=== PATIENT | male | born 1945 | race Caucasian/White ===

== ENCOUNTER → 2016-07-30 | Outpatient (CLI) | payer OTHER ==
[~2016-07-30] MED LIST: ACYCLOVIR 400400 MG PO; ADULT LOW DOSE81 MG PO; APAP500; ASPIRIN325; CIPRO250 M1; CIPROFLOXACIN500 M1; CODEINE SULFATE30 MG PO; DEPO-TESTO200 MG/1 M IM; DOXYCYCLINE 10100 MG PO; EFFIENT10 MG; FLOMAX; GLUCOSAMINE HC500 MG PO; HYDROCODON-ACE1 EAC7; LIPITOR40 MG PO; LIPITOR80 MG; LUMIGAN2.5 M1; MULTIVITAMINS PO; MULTIVITAMINS1 EAC7 PO; NITROGLYCERIN0.4 MG; NORVIR100 MG PO; PREZISTA800 MG PO; QUINU5 PD; RAPAFLO8 MG PO; RESTORIL15 MG; TAMSULOSIN HCL0.4 MG PO; TIMOLOL GL0.5 %/5 M1; TIMOLOL MA0.5 %/5 M2 OPHTHALMIC; TOPROL XL25 MG; TRUVADA1 EAC1 PO; ZPAK
== END ==
LOC: RAD 15:03
DX: M54.5 Low back pain (principal); B20 Human immunodeficiency virus [HIV] disease

== ENCOUNTER → 2017-08-03 | Outpatient (CLI) | payer OTHER | LOC: RAD 13:15 | DX: D70.9 Neutropenia, unspecified (principal); R91.8 Other nonspecific abnormal finding of lung field ==

== ENCOUNTER 2017-10-10 03:10 | Inpatient (IN) | payer OTHER ==
[~2017-10-10] VITALS: Ht 175.3 cm; Wt 86.2 kg
[2017-10-10] VITALS (7 sets, daily range): BP systolic 119–142; BP diastolic 65–79
--- NOTE | ~2017-10-10 | D ---
[facility] [place] [address] DISCHARGE SUMMARY Name: BEAU MARTIN Room #: 355-P [facility] IN M.R.#: [id number] Admission: 10/10/17 Attend Phys: Santos Wellington MD Discharge: 10/11/17 Date of : 41 Report #: [id number] THIS REPORT FOR: //name// CC: Juan Wellington DATE OF SERVICE: 10/11/2017 FINAL DIAGNOSES: 1. Left arm pain. 2. Coronary artery disease. PROCEDURES: Stress echocardiogram. HOSPITAL COURSE: The patient is a 72-year-old gentleman who is admitted to the Emergency Room after a sudden onset of left-sided arm pain that radiated down to his hand with some numbness or tingling in the fingers. He was admitted for cardiac evaluation. Enzymes were negative along with no acute EKG changes. With symptomatic treatment, his pain seemed to subside. On the day of discharge, he underwent a stress echocardiogram, which was negative for inducible ischemia. Dr. Sierra felt he was stable for discharge. I discussed with him the possibility that he may have some cervical arthritic or degenerative condition and we will work that up as an outpatient through the office. DISPOSITION: He is discharged to home. DIET AND ACTIVITY: As tolerated. DISCHARGE MEDICATIONS: Resume all his home medications. Follow up with Dr. Wellington in a couple of days to evaluate his arm pain. By: [id number] MD chdii Del Valle
--- NOTE | ~2017-10-10 | EKG ---
[place] [address] [facility] [employer] [place] [address] ELECTROCARDIOGRAM REPORT Name: BEAU MARTIN Room #: 355-P ADM IN M.R.#: [id number] Admission: 10/10/17 Attend Phys: Santos Wellington MD Discharge: Date of : 41 Report #: [id number] THIS REPORT FOR: //name// 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 : 1945 Requested By: Gissell Park Order Number: [id number] MD: Ashish Pinto Measurements Intervals [place] Rate: 49 P: 48 AL: 154 QRS: 16 QRSD: 112 T: -3 QT: 414 QTc: 374 Interpretive Statements Sinus bradycardia Inferior infarct, old Compared to ECG 04/20/2010 08:20:05 Atrial premature complex(es) now present Electronically Signed On 10-11-2017 8:40:37 CDT by Ashish Pinto [email or web address] <ELECTRONICALLY SIGNED> By: Ashish Pinto MD, [facility] 10/11/17 0840 2 2 Ashish Pinto MD, [facility] /EPI
--- NOTE | ~2017-10-10 | EKG ---
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 10/11/17 0840 [id number] [id number] Ashish Pinto MD, [facility] /EPI
--- NOTE | ~2017-10-10 | H ---
[facility] [place] [address] HISTORY AND PHYSICAL Name: BEAU MARTIN Room #: 355-P [facility] IN M.R.#: [id number] Admission: 10/10/17 Attend Phys: Santos Wellington MD Discharge: 10/11/17 Date of : 41 Report #: [id number] THIS REPORT FOR: //name// CC: Juan Sierra Santos Wellington DATE OF SERVICE: 10/10/2017 ATTENDING PHYSICIAN: Santos Mcdowell MD. CHIEF COMPLAINT: Having left arm pain. HISTORY OF PRESENT ILLNESS: The patient is a 72-year-old gentleman with known history of coronary artery disease and HIV, who presented to the ER with complaints of left arm pain that woke him up around 1 o'clock this morning. The patient reports that he was feeling numbness in the three fingers of his left hand. The pain was progressive and continuous. The patient's pain persisted, and hence, he presented to the ER. He was concerned that he may be having a myocardial infarction. He reports that the pain was similar to the one that he experienced in 2010 when he had to have a coronary stent placed. This morning, when I interviewed him, he started reporting that he feels numbness in his left upper extremity, which is extending from his shoulder down into arm and hand area. He does complain of having difficulty gripping because of pain. He does have a history of having cervical disk surgery done in 1998. He denies having any weakness in his upper extremity. He does not report any weakness of his legs. He is concerned that he may be having a disk herniation with cervical neuropathy. PAST MEDICAL HISTORY: Significant for history of cervical fusion surgery in 1998, history of myocardial infarction in 2010. Ventricular fibrillation and coronary artery disease with stent placement and HIV. ALLERGIES: HE IS KNOWN TO BE ALLERGIC TO MOLD. MEDICATIONS: He was currently on aspirin, atorvastatin, timolol eyedrop, silodosin, glucosamine. SOCIAL HISTORY: He drinks alcohol, does not smoke. 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 REVIEW OF SYSTEMS: He denied having any nausea, vomiting, abdominal pain, headache or any urinary symptoms. PHYSICAL EXAMINATION: GENERAL: Pleasant elderly gentleman who was resting in bed. He appeared to be anxious and wanted to leave. VITAL SIGNS: He was afebrile with a temperature 36.3, pulse of 107, respiratory [facility] [address] [place] [address] HISTORY AND PHYSICAL Name: BEAU MARTIN Room #: 355-P [facility] IN .R.#: [id number] Admission: 10/10/17 Attend Phys: Santos Wellington MD Discharge: 10/11/17 Date of : 41 Report #: [id number] rate 18, blood pressure 132/67, oxygen saturation 93% on room air. HEENT: Skull was atraumatic. There was no pallor, no icterus. Mucosa was moist. NECK: Supple. LUNGS: Clear to auscultation bilaterally with no wheeze or crackles. HEART: First and second normal. ABDOMEN: Soft, nontender, bowel sounds normally heard. EXTREMITIES: Did not reveal any edema. NEUROLOGIC: Cranial nerve examination, speech was normal. The patient was moving all 4 extremities equally and normally. 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 LABORATORY DATA: On admission showed a white cell count of 5.1, hemoglobin 15.1, hematocrit 43.3 and a platelet count of 198. Protime was 10, INR of 1, PTT of 24.7. Sodium 137, potassium 4.4, chloride 102, bicarbonate 28, BUN of 21, creatinine 1.3. Troponin was less than 0.06 x 2. Two EKGs were done, which showed sinus bradycardia with no evidence of any acute ST segment changes. Chest x-ray showed cardiomegaly with no pneumonia. ASSESSMENT: 1. Left upper extremity arm pain, suspect cervical radiculopathy. 2. Chest pain with associated coronary artery disease. 3. Dyslipidemia. 4. History of human immunodeficiency virus. 5. Benign prostatic hypertrophy. PLAN: To monitor the patient and have a cardiology consultation to rule out possibility of CO and discussed with the patient that the symptoms were suggestive of possible cervical radiculopathy to have further workup done as an outpatient as he was anxious to return home. <ELECTRONICALLY SIGNED> By: Santos Wellington MD 10/12/17 1128 [id number] [id number] Santos Wellington MD /nt
--- NOTE | ~2017-10-10 | EXE ---
[facility] [place] [employer] [place] [address] STRESS ECHOCARDIOGRAM Name: BEAU MARTIN Bernardo Room #: 355-P ADM IN M.R.#: [id number] Admission: 10/10/17 Attend Phys: Carline Longoria Discharge: Date of : 41 Date of Service: 10/11/17 1344 Report #: [id number] THIS REPORT FOR: //name// APPROVED REPORT Study performed: 10/11/2017 11:09:52 Exam: Stress Echocardiogram Indication: CAD Patient Location: In-Patient Stress Nurse: Abbey Adams RN Room #: 355 Status: routine Ht: 5 ft 9 in HR: 46 bpm BP: 146/85 mmHg Medical History Medical History: CAD s/p stent x2 Cardiac Risk Factors: Hyperlipidemia, FHX of CAD Pretest Chest Pain Characteristics: left arm pain Procedure The patient underwent an Exercise Stress Test using the Babak Protocol. Blood pressure, heart rate, and EKG were monitored. An Echocardiogram was performed by chemistry quality control technician in four stages in quad fashion. At peak stress, four selected images were obtained and placed side by side with resting images for comparison. Stress Test Details Stress Test: Exercise stress testing was performed using a Babak protocol. HR Resting HR: 50 bpm Max Heart Rate (APMHR): 146 bpm Max HR Achieved: 126 bpm Target HR (85% APMHR): 124 bpm % of APMHR: 86 Recovery HR: 71 bpm HR response to stress: Normal HR response to stress BP Resting BP: 146/85 mmHg Max BP: 180/90 mmHg Recovery BP: 160/78 mmHg ECG [facility] [address] [place] [address] STRESS ECHOCARDIOGRAM Name: MARIOBEAU R Room #: 355-P [facility] IN [facility]#: [id number] Admission: 10/10/17 Attend Phys: Carline Longoria Discharge: Date of : 41 Date of Service: 10/11/17 1344 Report #: [id number] Clinical Reason for Termination: Maximal effort Stress Symptoms: Fatigue Exercise duration: 7 min 01 sec Highest Stage Achieved: Stage 3: 3.4 mph at 14% grade. Exercise capacity: 10.00 METs Pre-Stress Echo The resting Echocardiogram showed normal left ventricular contractility with an estimated Ejection Fraction of about 50-55%. Post-Stress Echo The stress Echocardiogram showed normal left ventricular contractility with an estimated Ejection Fraction of about 65%. Conclusion Clinical Response: Non-ischemic Exercise Capacity: Average Stress ECG Response: Non-ischemic Stress Echo Images: Non-ischemic Other Information Study Quality: Adequate <ELECTRONICALLY SIGNED> By: Juan Sierra MD, [facility] 10/11/17 1344 1344 1344 Juan Sierra MD, FACC /INF
--- NOTE | ~2017-10-10 | H ---
[facility] [place] [address] HISTORY AND PHYSICAL Name: BEAU MARTIN Room #: 355-P [facility] IN M.R.#: [id number] Admission: 10/10/17 Attend Phys: Santos Wellington MD Discharge: 10/11/17 Date of : 41 Report #: [id number] THIS REPORT FOR: //name// CC: Juan Wellington DATE OF SERVICE: 10/10/2017 REASON FOR CONSULTATION: Chest pain. HISTORY OF PRESENT ILLNESS: This is a very pleasant 72-year-old gentleman with a prior history of coronary artery disease having undergone acute stenting and angioplasty several years ago of the right coronary artery presented with development of left-sided discomfort. The patient states that he was awakened from sleep with severe left arm discomfort. He could not position in any way ____ performed that improved the symptomatology. The patient states the discomfort persisted and presented to the Emergency Room since it was similar, although not as intense as his acute myocardial infarction several years ago. The patient denies having had any prior symptoms to this episode and in fact he goes to the gym frequently without any development of chest tightness, heaviness or fullness. He had no associated nausea or vomiting, although he did have a little bit of dyspnea. PAST MEDICAL HISTORY: Significant for: 1. Coronary artery disease, status post stenting of the right coronary artery in 2010. 2. Ventricular fibrillation at the time of acute myocardial infarction. 3. Human immunodeficiency virus syndrome. ALLERGIES: MOLD. PAST SURGICAL HISTORY: Significant for: 1. Cervical fusion in 1998. 2. Coronary stenting in 2010. MEDICATIONS: Atorvastatin, timolol eyedrops, aspirin, silodosin and glucosamine. SOCIAL HISTORY: The patient consumes alcohol socially. He does not smoke. 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 REVIEW OF SYSTEMS: Except for symptoms previously mentioned and those commensurate with comorbid state, a 10-point review of systems is negative. PHYSICAL EXAMINATION: GENERAL: Well-developed, well-nourished male, resting comfortably in [address] [address] HISTORY AND PHYSICAL Name: BEAU MARTIN Room #: 355-P [facility] IN [facility].#: [id number] Admission: 10/10/17 Attend Phys: Santos Wellington MD Discharge: 10/11/17 Date of : 41 Report #: [id number] distress. VITAL SIGNS: Temperature is 36.8, pulse is 84, respirations are 14-16, blood pressure 119/71 and O2 sat on room air is 98%. HEENT: Normocephalic, atraumatic. Pupils are equal, round, reactive to light and accommodation. Extraocular muscles are intact. Sclerae and conjunctivae are anicteric. NECK: JVD is normal. Carotid upstrokes are bilaterally symmetrical. No bruits are heard. No thyromegaly. No lymphadenopathy. LUNGS: Clear to auscultation. No wheezes, rhonchi or crackles. No CVA tenderness. CARDIAC: Demonstrates a regular rhythm. Normal first and second heart sounds. No ventricular or atrial gallops, no rubs noted. No murmurs. No lifts or heaves, PMI normal. ABDOMEN: Soft, nontender, nondistended. Normal bowel sounds. EXTREMITIES: Without cyanosis, clubbing or edema. Distal pulses are intact. DTR symmetrical. NEUROLOGIC: Cranial nerves 2-12 are grossly normal and symmetrical. PSYCHIATRIC: Alert, oriented with normal affect. SKIN: Warm and dry. IMPRESSION: 1. Chest pain ____ risk factors. His coronary anatomy was reviewed and demonstrates some diffuse disease and I am uncertain that nuclear perfusion scan would provide any significant difference unless we can compare it with the previous ones. He has not had a second troponin. I am going to draw a second troponin to make sure that it is not rising and if it is not, then we will decide tomorrow with his primary farm rancher, Dr. Sierra as to what the next step would be. 2. Dyslipidemia. Discussed the [place] [employer] step 1 diet with him briefly and he is on a statin. We will get a lipid profile if this has not already been obtained. 3. Benign prostatic hypertrophy as per primary care. <ELECTRONICALLY SIGNED> By: Vikas Garibay MD 10/12/17 1107 0919 1002 Vikas Garibay MD /nt
[2017-10-10] MEDS ORDERED: GENVOYA TABLET1 EACH PO (03:17)
[2017-10-10 03:31] LABS: ABSOLUTE NEUTROPHILS 2.4 thou/uL (1.4-8.2); BASOPHILS 0.5 % (0.0-2.0); EOSINOPHILS 7.5 % (0.0-3.0); HEMATOCRIT 43.3 % (42.0-52.0); HEMOGLOBIN 15.1 gm/dL (14.0-18.0); LYMPHOCYTES 33.1 % (24.0-44.0); MCH 31.4 pg (26.0-34.0); MCHC 34.9 g/dL (28.0-37.0); MCV 89.8 fL (80.0-100.0); MONOCYTES 11.1 % (1.0-8.0); PLATELET COUNT 198 thou/uL (150-400); POLYS 47.8 % (36.0-66.0); RBC 4.82 mil/uL (4.50-6.00); RDW 13.5 % (10.5-14.5); WBC 5.1 thou/uL (4.0-11.0)
[2017-10-10 03:34] LABS: ANION GAP 7 mmol/L (7-16); BUN 21 mg/dL (7-18); CALCIUM 9.6 mg/dL (8.5-10.1); CHLORIDE 102 mmol/L (98-107); CO2 28 mmol/L (21-32); CREATININE 1.3 mg/dL (0.7-1.3); GLUCOSE 105 mg/dL (74-106); POTASSIUM 4.4 mmol/L (3.5-5.1); SODIUM 137 mmol/L (136-145)
[2017-10-10 03:43] LABS: TROPONIN-I <0.06 ng/mL (<0.06)
[2017-10-10 04:21] LABS: APTT 24.7 Seconds (24.5-32.8)
[2017-10-11 04:30] VITALS: BP 125/63
[2017-10-11 08:35] VITALS: BP 135/68
[2017-10-11 12:39] VITALS: BP 135/68
== END 2017-10-11 14:33 | disposition home or self-care (01) | DRG 556 ==
LOC: ER 03:10 → 3W 04:52 → EROBS 04:52 → 3W 05:24
PROVIDERS: Emergency Medicine
DX: M79.602 Pain in left arm (principal); R07.9 Chest pain, unspecified; I25.10 Atherosclerotic heart disease of native coronary artery without angina pectoris; E78.5 Hyperlipidemia, unspecified; N40.0 Benign prostatic hyperplasia without lower urinary tract symptoms; E78.00 Pure hypercholesterolemia, unspecified; Z21 Asymptomatic human immunodeficiency virus [HIV] infection status; Z98.61 Coronary angioplasty status; Z98.1 Arthrodesis status; I25.2 Old myocardial infarction; Z91.048 Other nonmedicinal substance allergy status; Z79.82 Long term (current) use of aspirin; Z79.899 Other long term (current) drug therapy
CPT/HCPCS: 10879

== ENCOUNTER → 2018-10-10 | Outpatient (CLI) | payer OTHER ==
[~2018-10-10] MED LIST changes: +GENVOYA TABLET1 EACH PO
== END ==
LOC: RAD 17:21
DX: M77.52 Other enthesopathy of left foot and ankle (principal); M77.32 Calcaneal spur, left foot

== ENCOUNTER → 2019-11-01 | Outpatient (CLI) | payer OTHER | LOC: SJCVCIMAG 10-04 09:20 | PROVIDERS: ATTEND Internal Medicine Cardiovascular Disease | DX: I65.23 Occlusion and stenosis of bilateral carotid arteries (principal); R00.1 Bradycardia, unspecified; I10 Essential (primary) hypertension; I25.10 Atherosclerotic heart disease of native coronary artery without angina pectoris; E78.5 Hyperlipidemia, unspecified; Z95.5 Presence of coronary angioplasty implant and graft ==

== ENCOUNTER 2019-12-27 18:16 | Emergency (ER) | payer OTHER ==
[~2019-12-27] VITALS: Ht 175.3 cm; Wt 87.1 kg
[2019-12-27] MEDS ORDERED: TESSALON PERLE100 MG PO (19:13)
[2019-12-27 19:49] VITALS: BP 140/60
== END 2019-12-27 19:49 | disposition home or self-care (01) ==
LOC: ER 18:16
DX: J98.8 Other specified respiratory disorders (principal); Z20.828 Contact with and (suspected) exposure to other viral communicable diseases; I48.91 Unspecified atrial fibrillation; Z88.8 Allergy status to other drugs, medicaments and biological substances

== ENCOUNTER → 2021-04-16 | Outpatient (CLI) | payer OTHER ==
[~2021-04-16] MED LIST changes: +TESSALON PERLE100 MG PO
== END ==
LOC: SJCVC 09:42
PROVIDERS: ATTEND Internal Medicine Cardiovascular Disease
DX: R94.31 Abnormal electrocardiogram [ECG] [EKG] (principal); I25.10 Atherosclerotic heart disease of native coronary artery without angina pectoris; I10 Essential (primary) hypertension; E78.00 Pure hypercholesterolemia, unspecified; R06.00 Dyspnea, unspecified; R07.89 Other chest pain; Z72.89 Other problems related to lifestyle; Z79.82 Long term (current) use of aspirin; Z79.899 Other long term (current) drug therapy; Z82.49 Family history of ischemic heart disease and other diseases of the circulatory system

== ENCOUNTER → 2021-05-14 | Outpatient (CLI) | payer OTHER | LOC: SJCVCIMAG 09:52 | PROVIDERS: ATTEND Internal Medicine Cardiovascular Disease | DX: I25.10 Atherosclerotic heart disease of native coronary artery without angina pectoris (principal); I10 Essential (primary) hypertension; R07.9 Chest pain, unspecified; R06.00 Dyspnea, unspecified; E78.5 Hyperlipidemia, unspecified ==